=== PATIENT | female | born 1995 ===

== ENCOUNTER 2020-12-17 15:41 | Emergency (ER) | payer SELFPAY ==
--- NOTE | 2020-12-17 17:43 | Event Note ---
ED Screening Note ED Screening Note: Citizen Of [place] interpretation by the language line Patient is presenting for cough, shortness of breath, chest tightness that began 8 days ago She was in contact with someone with COVID-19 She is tachycardic and febrile This initial assessment/diagnostic orders/clinical plan/treatment(s) is/are subject to change based on patients health status, clinical progression and re- assessment by fellow clinical providers in the ED. Further treatment and workup at subsequent clinical providers discretion. Patient/guardian urged not to elope from the ED as their condition may be serious if not clinically assessed and managed. Initial orders include: Code sepsis initiated Charge nurse Autumn informed the patient needs room JOHNATHAN
[2020-12-17] MEDS ORDERED: ACETAMINOPHEN 325 MG TAB PO ONE (17:49)
[2020-12-17 18:01] LABS: Basophils % (Auto) 0.2 % (0.0-1.8); Eosinophils % (Auto) 0.4 % (0.0-4.3); Hematocrit 41.9 % (30.3-42.9); Lymphocytes # (Auto) 1.1 K/mm3 (1.2-5.4); Lymphocytes % (Auto) 19.5 % (13.4-35.0); Mean Corpuscular HGB Conc 33 % (30-34); Mean Corpuscular Volume 80 fl (79-97); Monocytes # (Auto) 0.3 K/mm3 (0.0-0.8); Monocytes % (Auto) 5.7 % (0.0-7.3); Platelet Count 217 K/mm3 (140-440); Red Blood Count 5.23 M/mm3 (3.65-5.03); Red Cell Distribution Width 17.2 % (13.2-15.2)
[2020-12-17 18:16] LABS: Alanine Aminotransferase 48 units/L (7-56); Albumin 4.4 g/dL (3.9-5); BUN/Creatinine Ratio 18; Blood Urea Nitrogen 14 mg/dL (7-17); Calcium 9.1 mg/dL (8.4-10.2); Hemolysis Index 4
--- NOTE | 2020-12-17 19:03 | XRay Report ---
CHEST 2 VIEWS INDICATION: SOB, cough. COMPARISON: None FINDINGS: Support devices: None. Heart: Within normal limits. Lungs: Multifocal airspace changes are present throughout both lungs Pleura: No significant pleural effusion. No pneumothorax. Additional findings: None. IMPRESSION: 1. Multifocal airspace process, pneumonia is a concern Signer Name: Rashawn Zacarias MD Signed: 12/17/2020 6:59 PM Workstation Name: [id number]
--- NOTE | 2020-12-21 09:41 | Electrocardiograph Report ---
[facility] Test Date: 2020-12-17 Test Time: 17:56:59 Pat Name: RUDDY ARANGO Department: Room: Gender: F Religious Education Coordinator: KAREN : 1995 Requested By: PAXTON CARR Order Number: [id number] Reading MD: Zac Jalloh Measurements Intervals [place] Rate: 121 P: 21 DE: 129 QRS: -2 QRSD: 80 T: 25 QT: 328 QTc: 457 Interpretive Statements Sinus tachycardia Atrial premature complexes No previous ECG available for comparison Electronically Signed On 12-21-2020 9:41:01 EDT by Zac Jalloh
== END 2020-12-17 19:00 | disposition left against medical advice (07) ==
LOC: ED 15:41
DX: R50.9 Fever, unspecified (principal); E11.9 Type 2 diabetes mellitus without complications; Z53.21 Procedure and treatment not carried out due to patient leaving prior to being seen by health care provider
CPT/HCPCS: 36415; 71046; 80053; 82140; 84703; 85025; 87040; 93005